=== PATIENT | male | born 1955 | race Caucasian/White ===

== ENCOUNTER 2016-05-13 17:02 | Emergency (ER) | payer BC ==
[~2016-05-13] VITALS: Ht 177.8 cm; Wt 81.6 kg
[~2016-05-13 17:02] MED LIST: AMOXICILLIN500 MG PO; CYCLOBENZAPRINE10 MG PO; NAPROSYN500 MG PO; NORCO 5-325 TA1 EACH PO; PREDNICOT20 MG PO
[2016-05-13] MEDS ORDERED: ONE DAILY ESSE1 EACH PO (17:10)
[2016-05-13] MEDS ORDERED: FISH OIL 1,001000 MG PO (17:10)
[2016-05-13] MEDS ORDERED: CYCLOBENZAPRINE10 MG PO ×2 (18:25→18:40)
[2016-05-13] MEDS ORDERED: MEDROL DOSEPAK4 MG PO ×2 (18:25→18:40)
[2016-05-14] MEDS ORDERED: TYLENOL650 MG R (12:55)
== END 2016-05-13 18:33 | disposition home or self-care (01) ==
LOC: ED 17:02
DX: M54.16 Radiculopathy, lumbar region (principal); F17.200 Nicotine dependence, unspecified, uncomplicated; Z79.899 Other long term (current) drug therapy

== ENCOUNTER 2016-05-14 12:25 | Emergency (ER) | payer BC ==
[~2016-05-14] VITALS: Ht 177.8 cm; Wt 81.6 kg
[~2016-05-14 12:25] MED LIST changes: +FISH OIL 1,001000 MG PO; +MEDROL DOSEPAK4 MG PO; +ONE DAILY ESSE1 EACH PO
[2016-05-14] MEDS ORDERED: TYLENOL650 MG R (12:55)
== END 2016-05-14 14:49 | disposition home or self-care (01) ==
LOC: ED 12:25
DX: M54.16 Radiculopathy, lumbar region (principal); M51.86 Other intervertebral disc disorders, lumbar region; F17.200 Nicotine dependence, unspecified, uncomplicated; Z87.442 Personal history of urinary calculi

== ENCOUNTER 2016-05-16 15:01 | Emergency (ER) | payer BC ==
[~2016-05-16] VITALS: Wt 81.6 kg
[~2016-05-16 15:01] MED LIST changes: +TYLENOL650 MG R
[2016-05-16] MEDS ORDERED: PREDNISONE50 MG PO (17:07)
[2016-05-16] MEDS ORDERED: PERCOCET 325 MG1 TA2 PO (17:07)
== END 2016-05-16 17:28 | disposition home or self-care (01) ==
LOC: ED 15:01
DX: M54.16 Radiculopathy, lumbar region (principal); M51.26 Other intervertebral disc displacement, lumbar region; F17.200 Nicotine dependence, unspecified, uncomplicated

== ENCOUNTER 2016-05-19 08:14 | Inpatient (IN) | payer BC ==
[~2016-05-19] VITALS: Ht 177.8 cm; Wt 79.9 kg
[~2016-05-19 08:14] MED LIST changes: +PERCOCET 325 MG1 TA2 PO; +PREDNISONE50 MG PO
[2016-05-19 08:27] VITALS: BP 169/82; BP 194/94
[2016-05-19 09:10] VITALS: BP 165/90
[2016-05-19 11:00] VITALS: BP 160/88
[2016-05-19 11:20] VITALS: BP 128/64
[2016-05-19] MEDS ORDERED: CENTRUM SILVER1 EAC4 PO (12:44)
[2016-05-19 14:31] LABS: HEMATOCRIT 35.1 % (42.0-52.0); HEMOGLOBIN 11.8 g/dl (14.0-18.0); MEAN CELL VOLUME 115.1 fl (80.0-94.0); MEAN CORPUSCULAR HGB 38.7 pg (27.0-31.0); MEAN CORPUSCULAR HGB CONC 33.6 g/dl (33.0-37.0); MEAN PLATELET VOLUME 10.1 fl (9.6-12.3); PLATELET COUNT AUTOMATED 251 10*3/uL (130-400); RED BLOOD COUNT 3.05 10*6/uL (4.50-5.90); RED CELL DISTRI WIDTH 14.8 % (0-14.5)
[2016-05-19 14:49] LABS: ATYPICAL LYMPHS 1 % (0-0); LYMPHOCYTE # 1.4 10*3/uL (1.3-4.4); NEUTROPHIL # 9.6 10*3/uL (2.3-7.9); NEUTROPHILS 87 % (47-73); PLATELET SUFFICIENCY NORMAL (NORMAL); TOTAL CELLS COUNTED 100 #CELLS
[2016-05-19 14:53] LABS: BUN 17 mg/dl (7-24); CARBON DIOXIDE 22 mmol/L (21-32); CHLORIDE 108 mmol/L (98-107); EST GLOM FILT AFRICAN AMERICAN > 60 ml/min; GLUCOSE 156 mg/dL (65-99); POTASSIUM 4.2 mmol/L (3.5-5.1); SODIUM 140 mmol/L (136-145)
[2016-05-19 16:00] VITALS: BP 128/60
[2016-05-19 20:00] VITALS: BP 140/64
[2016-05-20] VITALS: BP 150/83
[2016-05-20 05:53] LABS: HEMATOCRIT 35.4 % (42.0-52.0); HEMOGLOBIN 12.3 g/dl (14.0-18.0); MEAN CELL VOLUME 112.4 fl (80.0-94.0); MEAN CORPUSCULAR HGB CONC 34.7 g/dl (33.0-37.0); MEAN PLATELET VOLUME 10.1 fl (9.6-12.3); PLATELET COUNT AUTOMATED 252 10*3/uL (130-400); RED BLOOD COUNT 3.15 10*6/uL (4.50-5.90); RED CELL DISTRI WIDTH 14.6 % (0-14.5); WHITE BLOOD COUNT 8.2 10*3/uL (4.8-10.8)
[2016-05-20 06:31] LABS: ALBUMIN 3.7 gm/dl (3.1-4.5); ALKALINE PHOSPHATASE 45 U/L (45-117); BILIRUBIN, TOTAL 0.3 mg/dl (0.2-1.0); BUN 16 mg/dl (7-24); CARBON DIOXIDE 24 mmol/L (21-32); CHLORIDE 107 mmol/L (98-107); CHOLESTEROL 212 mg/dL (<200); EST GLOM FILT AFRICAN AMERICAN > 60 ml/min; GLUCOSE 108 mg/dL (65-99); HDL CHOLESTEROL 37 mg/dl (40-60); LDL CHOLESTEROL 142 mg/dL (9-159); MAGNESIUM 2.4 mg/dL (1.5-2.1); POTASSIUM 4.4 mmol/L (3.5-5.1); SGOT/AST 8 IU/L (3-35); SGPT/ALT 27 U/L (12-78); SODIUM 140 mmol/L (136-145); TOTAL PROTEIN 7.1 gm/dL (6.4-8.2); TRIGLYCERIDES 166 mg/dl (<150); VLDL CHOLESTEROL 33 mg/dL (6-40)
[2016-05-20 07:07] LABS: LYMPHOCYTE # 1.6 10*3/uL (1.3-4.4); METAMYELOCYTES 1 % (0-0); MONOCYTE # 0.7 10*3/uL (0.1-1.0); NEUTROPHIL # 5.9 10*3/uL (2.3-7.9); NEUTROPHILS 72 % (47-73); PLATELET SUFFICIENCY NORMAL (NORMAL); TOTAL CELLS COUNTED 100 #CELLS
[2016-05-20 07:48] LABS: FOLIC ACID 5.85 ng/mL (>5.38)
[2016-05-20 08:00] VITALS: BP 153/79
[2016-05-20 12:00] VITALS: BP 128/75
== END 2016-05-20 15:00 | disposition other institution (70) | DRG 552 ==
LOC: ED 08:14 → 5E 10:52 → EDHOLD 10:52 → 5E 11:00
PROVIDERS: Internal Medicine
DX: M54.16 Radiculopathy, lumbar region (principal); D53.9 Nutritional anemia, unspecified; R03.0 Elevated blood-pressure reading, without diagnosis of hypertension; R73.9 Hyperglycemia, unspecified; D72.810 Lymphocytopenia; F17.210 Nicotine dependence, cigarettes, uncomplicated; Z87.442 Personal history of urinary calculi; Z83.3 Family history of diabetes mellitus; Z82.3 Family history of stroke; Z79.899 Other long term (current) drug therapy